=== PATIENT | female | born 1950 | race Caucasian/White ===

== ENCOUNTER → 2019-10-21 09:54 | Outpatient (CLI) | payer SELFPAY ==
--- NOTE | 2019-10-21 10:03 | CT_ITS ---
STUDY: CT PELVIS WITHOUT CONTRAST REASON FOR EXAM: Female, 69 years old. THERAPY PLANNING, RECTAL CA RADIATION DOSAGE (If Supplied By Facility): CTDIvol = ( 22.91 ) mGy, DLP = ( 791.24 ) mGycm TECHNIQUE: Transaxial imaging of the pelvis was performed with oral contrast, and without intravenous administration of contrast material. Individualized dose optimization techniques were used for this CT. COMPARISON: None. FINDINGS: Normal urinary bladder. Enlarged fibroid uterus. Normal visualized small intestine. There is diffuse circumferential wall thickening of the rectum. There is no pelvic fluid. There is no pelvic mass lesion or lymphadenopathy. Normal visualized pelvic arteries. Normal abdominal wall. There are diffuse degenerative changes of the visualized lumbar spine. CT/Pelvis without IV Contrast IMPRESSION: Diffuse circumferential wall thickening of the rectum. Enlarged fibroid uterus. Electronically Signed: Carlos Espinal, at 13:09 EDT , Service support ,
== END ==
PROVIDERS: PCP Family Medicine; Referring Provider Radiology Radiation Oncology; Visit Provider Radiology Radiation Oncology
DX: C20 Malignant neoplasm of rectum (principal)
CPT/HCPCS: 72192